=== PATIENT | female | born 1965 | race Caucasian/White ===

== ENCOUNTER → 2021-03-15 07:20 | Outpatient (CLI) | payer OTHER, BC, SELFPAY ==
--- NOTE | 2021-03-15 07:32 | MRI_ITS ---
HISTORY: DISC DISPLACEMENT, RADICULOPATHY, CERVICAL DYSFUNCTION. TECHNIQUE: Routine MRI of the cervical spine was performed. # of images incl. paperwork: 247. IV Contrast dosage and agent: None. COMPARISON: None. FINDINGS: VERTEBRAE: Vertebral body heights maintained. Mild degenerative bone marrow endplate changes at C4-5 and C5-6. ALIGNMENT: Straightening of the cervical lordosis. 2 mm anterolisthesis of C3-4 and C6-7. 2 mm retrolisthesis of C4-5. CORD: Morphology and signal within normal limits. SOFT TISSUES: No prevertebral fluid collection. INTERVERTEBRAL DISCS: C2-3, C3-4, C7-T1: No significant posterior disc protrusion, central canal stenosis, or foraminal narrowing. C4-5: Mild posterior disc bulge osteophyte complex with uncovertebral and facet arthropathy resulting in mild central canal stenosis and bilateral foraminal narrowing. C5-6: Mild posterior disc bulge osteophyte complex with uncovertebral and facet arthropathy resulting in mild central canal stenosis and mild-moderate right foraminal narrowing. C6-7: Degenerative changes of the posterior elements resulting in moderate left foraminal narrowing. No significant posterior disc protrusion or central canal stenosis. MRI/Spine Cervical (Routine) IMPRESSION: Multilevel degenerative disc disease as described above. at 1633 Reported and signed by: Gisela Patel MD Electronically Signed: Gisela Patel MD at 16:32 EDT Tel , Service support ,
== END ==
PROVIDERS: Referring Provider Chiropractor; Visit Provider Chiropractor
DX: M50.23 Other cervical disc displacement, cervicothoracic region (principal); M54.13 Radiculopathy, cervicothoracic region; M99.01 Segmental and somatic dysfunction of cervical region
CPT/HCPCS: 72141